=== PATIENT | female | born 1960 | race Hispanic/Latino ===

== ENCOUNTER 2017-11-20 22:21 | Inpatient (IN) | payer OTHER ==
[~2017-11-20] VITALS: Ht 152 cm; Wt 72.6 kg
[2017-11-20] MEDS ORDERED: ASPIRIN 325 MG TABLET ONE (22:30)
[2017-11-20 22:46] LABS: BASOPHILS % (AUTO) 0.7 % (0.0-5.0); EOSINOPHILS % (AUTO) 4.5 % (0.0-8.0); HEMATOCRIT 44.9 % (36-48); LYMPHOCYTES % (AUTO) 38.6 % (21.0-51.0); MEAN CORPUSCULAR HEMOGLOBIN 33.6 pg (27.0-33.0); MEAN CORPUSCULAR HGB CONC 34.4 g/dL (32.0-36.0); MEAN CORPUSCULAR VOLUME 97.5 fL (79-99); MONOCYTES % (AUTO) 7.5 % (3.0-13.0); NEUTROPHILS % (AUTO) 48.7 % (40.0-77.0); PLATELET COUNT (AUTO) 282 K/uL (130-400); RED CELL DISTRIBUTION WIDTH 12.4 % (11.0-15.5); WHITE BLOOD COUNT (AUTO) 9.9 K/uL (4.8-10.8)
[2017-11-20] MEDS ORDERED: DICYCLOMINE HCL 10 MG/ML 2ML AMP IM ONE (22:50)
[2017-11-20] MEDS ORDERED: SODIUM CHLORIDE 0.9% 1000ML 1,000 ML IV ONE (22:50)
[2017-11-20] MEDS ORDERED: ONDANSETRON HCL 4 MG/2 ML VIAL ONE (22:50)
[2017-11-20 22:55] LABS: CREATININE 0.8 mg/dL (0.5-1.5); POTASSIUM 3.8 mmol/L (3.5-5.1)
[2017-11-20 23:08] LABS: ALBUMIN 4.1 g/dL (3.5-5.0); BILIRUBIN,TOTAL 0.6 mg/dL (0.2-1.0); TOTAL PROTEIN, SERUM 6.9 g/dL (6.0-8.3)
[2017-11-21] VITALS (7 sets, daily range): BP systolic 95–114; BP diastolic 54–73
[2017-11-21] MEDS ORDERED: ONDANSETRON HCL 4 MG/2 ML VIAL ONE (00:05)
[2017-11-21] MEDS ORDERED: MORPHINE SULFATE 4 MG/1ML SYG ONE (00:06)
[2017-11-21] MEDS ORDERED: ONDANSETRON HCL MDV 20ML 2 MG/ML VIAL IVP PRN (01:00)
[2017-11-21] MEDS ORDERED: MORPHINE SULFATE 4 MG/1ML SYG IVP PRN (01:00)
[2017-11-21] MEDS: 1/2 NORMAL SALINE 1,000 ML IV SCH ×3 (01:08→20:09)
[2017-11-21 04:34] LABS: HEMATOCRIT 41.8 % (36-48); MEAN CORPUSCULAR HGB CONC 35.6 g/dL (32.0-36.0); MEAN CORPUSCULAR VOLUME 98.3 fL (79-99); NUCLEATED RED BLOOD CELLS 0.1 % (0.0-0.19); PLATELET COUNT (AUTO) 267 K/uL (130-400); RED BLOOD CELL COUNT(AUTO) 4.25 MIL/uL (4.00-5.50); WHITE BLOOD COUNT (AUTO) 8.3 K/uL (4.8-10.8)
[2017-11-21 04:42] LABS: CREATININE 0.9 mg/dL (0.5-1.5); POTASSIUM 4.6 mmol/L (3.5-5.1)
[2017-11-21] MEDS ORDERED: HYDROMORPHONE 1 MG/1 ML AMP IVP PRN (06:30)
[2017-11-21 07:11] LABS: CHOLESTEROL 89 mg/dL (<200); HDL CHOLESTEROL 35 mg/dL (35-85); LDL DIRECT 35 mg/dL (0-99); TRIGLYCERIDES 253 mg/dL (30-200)
[2017-11-21] MEDS ORDERED: GLUCAGON 1MG KIT 1 MG ML IM PRN (08:00)
[2017-11-21] MEDS ORDERED: DEXTROSE 50%-WATER 50 ML DISP.SYRIN IV PRN (08:00)
[2017-11-21] MEDS ORDERED: ENOXAPARIN SODIUM 30 MG/0.3 ML SQ SCH (09:00)
[2017-11-21] MEDS ORDERED: PANTOPRAZOLE 40 MG/VIAL IVP SCH (09:00)
[2017-11-21] MEDS: INSULIN HUMULIN R 100 UNIT/ML 3ML SQ SCH ×3 (12:00→20:58)
[2017-11-21] MEDS ORDERED: ATOR40TA69 PO (20:06)
[2017-11-21] MEDS ORDERED: LISI40TA4 PO (20:06)
[2017-11-21] MEDS ORDERED: METF500T6 PO (20:06)
[2017-11-21] MEDS ORDERED: AMLO5TAB2 PO (20:06)
[2017-11-22 03:05] VITALS: BP 99/58
[2017-11-22 04:33] LABS: HEMATOCRIT 41.5 % (36-48); MEAN CORPUSCULAR HEMOGLOBIN 33.8 pg (27.0-33.0); MEAN CORPUSCULAR HGB CONC 34.6 g/dL (32.0-36.0); MEAN CORPUSCULAR VOLUME 97.6 fL (79-99); PLATELET COUNT (AUTO) 242 K/uL (130-400); RED BLOOD CELL COUNT(AUTO) 4.25 MIL/uL (4.00-5.50); RED CELL DISTRIBUTION WIDTH 12.1 % (11.0-15.5); WHITE BLOOD COUNT (AUTO) 8.1 K/uL (4.8-10.8)
[2017-11-22 04:43] LABS: POTASSIUM 3.9 mmol/L (3.5-5.1)
[2017-11-22] MEDS: 1/2 NORMAL SALINE 1,000 ML IV SCH (05:41)
[2017-11-22] MEDS ORDERED: IPRATROPIUM/ALBUTEROL SULFATE 3 ML SOLUTION IH SCH (06:00)
[2017-11-22] MEDS: INSULIN HUMULIN R 100 UNIT/ML 3ML SQ SCH (06:31)
[2017-11-22 07:00] VITALS: BP 112/76
[2017-11-22] MEDS ORDERED: FAMOTIDINE/PF 20 MG/2 ML VIAL IV SCH (09:00)
== END 2017-11-22 09:30 | disposition home or self-care (01) | DRG 440 ==
LOC: EDH 22:21 → 3DH 11-21 00:07
PROVIDERS: ADMIT Internal Medicine; ATTEND Internal Medicine
DX: K85.90 Acute pancreatitis without necrosis or infection, unspecified (principal); E11.9 Type 2 diabetes mellitus without complications; J44.9 Chronic obstructive pulmonary disease, unspecified; I10 Essential (primary) hypertension; Z90.49 Acquired absence of other specified parts of digestive tract
CPT/HCPCS: 36415; 71045; 74176; 76700; 80048; 80053; 80061; 82150; 82550; 82948; 83690; 84484; 85025; 85027; 93005; 94640; 94664; C9113; J0500; J1650; J2270; J2405; J7030

== ENCOUNTER 2018-08-10 17:09 | Emergency (ER) | payer OTHER ==
[~2018-08-10 17:09] MED LIST: AMLO5TAB9 PO; ATOR40TA69 PO; LISI40TA4 PO; METF-444 PO
[2018-08-10 17:58] LABS: BASOPHILS % (AUTO) 0.8 % (0.0-5.0); EOSINOPHILS % (AUTO) 3.7 % (0.0-8.0); HEMATOCRIT 45.3 % (36-48); LYMPHOCYTES % (AUTO) 36.6 % (21.0-51.0); MEAN CORPUSCULAR HEMOGLOBIN 31.9 pg (27.0-33.0); MEAN CORPUSCULAR HGB CONC 32.7 g/dL (32.0-36.0); MEAN CORPUSCULAR VOLUME 97.4 fL (79-99); MONOCYTES % (AUTO) 8.3 % (3.0-13.0); NEUTROPHILS % (AUTO) 50.6 % (40.0-77.0); PLATELET COUNT (AUTO) 293 K/uL (130-400); RED BLOOD CELL COUNT(AUTO) 4.65 MIL/uL (4.00-5.50); RED CELL DISTRIBUTION WIDTH 12.2 % (11.0-15.5); WHITE BLOOD COUNT (AUTO) 7.7 K/uL (4.8-10.8)
[2018-08-10] MEDS ORDERED: IPRATROPIUM/ALBUTEROL SULFATE 3 ML SOLUTION IH ONE (18:10)
[2018-08-10 18:13] LABS: BILIRUBIN,TOTAL 0.3 mg/dL (0.2-1.0); TOTAL PROTEIN, SERUM 7.3 g/dL (6.0-8.3)
== END 2018-08-10 18:57 | disposition home or self-care (01) ==
LOC: EDH 17:09
DX: J20.9 Acute bronchitis, unspecified (principal); E11.9 Type 2 diabetes mellitus without complications; J44.9 Chronic obstructive pulmonary disease, unspecified; I10 Essential (primary) hypertension
CPT/HCPCS: 36415; 71046; 80053; 85025; 87804; 94640

== ENCOUNTER 2018-10-01 13:38 | Emergency (ER) | payer OTHER ==
[2018-10-01 14:20] LABS: BASOPHILS % (AUTO) 0.9 % (0.0-5.0); EOSINOPHILS % (AUTO) 2.9 % (0.0-8.0); HEMATOCRIT 35.4 % (36-48); LYMPHOCYTES % (AUTO) 22.2 % (21.0-51.0); MEAN CORPUSCULAR HEMOGLOBIN 31.1 pg (27.0-33.0); MEAN CORPUSCULAR HGB CONC 33.1 g/dL (32.0-36.0); MONOCYTES % (AUTO) 5.9 % (3.0-13.0); NEUTROPHILS % (AUTO) 68.1 % (40.0-77.0); PLATELET COUNT (AUTO) 356 K/uL (130-400); RED BLOOD CELL COUNT(AUTO) 3.76 MIL/uL (4.00-5.50); RED CELL DISTRIBUTION WIDTH 12.5 % (11.0-15.5); WHITE BLOOD COUNT (AUTO) 8.3 K/uL (4.8-10.8)
[2018-10-01 14:37] LABS: CREATININE 1.1 mg/dL (0.5-1.5); POTASSIUM 3.7 mmol/L (3.5-5.1)
[2018-10-01 14:39] LABS: ALBUMIN 3.9 g/dL (3.5-5.0); BILIRUBIN,TOTAL 0.6 mg/dL (0.2-1.0); TOTAL PROTEIN, SERUM 6.4 g/dL (6.0-8.3)
[2018-10-01] MEDS ORDERED: KETOROLAC TROMETHAMINE 15MG/ML ONE (15:06)
[2018-10-01] MEDS ORDERED: IOHEXOL-350 75 ML VIAL IV ONE (15:41)
== END 2018-10-01 17:11 | disposition home or self-care (01) ==
LOC: EDH 13:38
DX: S20.212A Contusion of left front wall of thorax, initial encounter (principal); S70.02XA Contusion of left hip, initial encounter; S50.312A Abrasion of left elbow, initial encounter; S80.812A Abrasion, left lower leg, initial encounter; S39.91XA Unspecified injury of abdomen, initial encounter; E11.9 Type 2 diabetes mellitus without complications; J44.9 Chronic obstructive pulmonary disease, unspecified; I10 Essential (primary) hypertension; Z72.0 Tobacco use; W01.0XXA Fall on same level from slipping, tripping and stumbling without subsequent striking against object, initial encounter; Y93.89 Activity, other specified; Y92.89 Other specified places as the place of occurrence of the external cause; Y99.8 Other external cause status
CPT/HCPCS: 36415; 71101; 73502; 74177; 80053; 82550; 84484; 85025; 93005; 96374; 99284; J1885; Q9967

== ENCOUNTER → 2018-12-04 | Outpatient (CLI) | payer OTHER ==
[2018-12-04 08:21] LABS: BASOPHILS % (AUTO) 0.7 % (0.0-5.0); EOSINOPHILS % (AUTO) 4.3 % (0.0-8.0); HEMATOCRIT 42.7 % (36-48); LYMPHOCYTES % (AUTO) 28.2 % (21.0-51.0); MEAN CORPUSCULAR HEMOGLOBIN 30.1 pg (27.0-33.0); MEAN CORPUSCULAR HGB CONC 32.9 g/dL (32.0-36.0); MEAN CORPUSCULAR VOLUME 91.3 fL (79-99); MONOCYTES % (AUTO) 9.2 % (3.0-13.0); NEUTROPHILS % (AUTO) 57.6 % (40.0-77.0); NUCLEATED RED BLOOD CELLS 0.1 % (0.0-0.19); PLATELET COUNT (AUTO) 282 K/uL (130-400); RED BLOOD CELL COUNT(AUTO) 4.68 MIL/uL (4.00-5.50); RED CELL DISTRIBUTION WIDTH 14.5 % (11.0-15.5); WHITE BLOOD COUNT (AUTO) 7.4 K/uL (4.8-10.8)
[2018-12-04 08:36] LABS: HEMOGLOBIN A1C 7.2 % (4.0-6.0)
[2018-12-04 08:49] LABS: ALBUMIN 4.2 g/dL (3.5-5.0); BILIRUBIN,DIRECT 0.1 mg/dL (0.0-0.3); BILIRUBIN,TOTAL 0.5 mg/dL (0.2-1.0); POTASSIUM 4.9 mmol/L (3.5-5.1); THYROID STIMULATING HORMONE 4.31 uIU/mL (0.36-3.74); TOTAL PROTEIN, SERUM 6.7 g/dL (6.0-8.3); URIC ACID 7.9 mg/dL (2.6-7.2)
== END | disposition home or self-care (01) ==
LOC: LAB 07:35
PROVIDERS: ATTEND Internal Medicine
DX: E11.65 Type 2 diabetes mellitus with hyperglycemia (principal); I25.10 Atherosclerotic heart disease of native coronary artery without angina pectoris; J44.9 Chronic obstructive pulmonary disease, unspecified; F17.210 Nicotine dependence, cigarettes, uncomplicated
CPT/HCPCS: 36415; 80053; 80061; 80076; 82043; 83036; 83970; 84443; 84550; 85025

== ENCOUNTER → 2018-12-19 | Outpatient (CLI) | payer OTHER ==
[~2018-12-19] MED LIST changes: +ALBUTEROL SULFATE 0.083% 2.5 MG/3 ML INH IH ONE
== END | disposition home or self-care (01) ==
LOC: RESP 08:39
PROVIDERS: ATTEND Internal Medicine
DX: I51.7 Cardiomegaly (principal); J44.9 Chronic obstructive pulmonary disease, unspecified
CPT/HCPCS: 93306; 94060; 94727; 94729

== ENCOUNTER → 2019-02-06 | Outpatient (CLI) | payer OTHER ==
[~2019-02-06] VITALS: Ht 154.9 cm; Wt 79.4 kg
[~2019-02-06] MED LIST changes: -ALBUTEROL SULFATE 0.083% 2.5 MG/3 ML INH IH ONE; +REGADENOSON 0.4 MG/5 ML PF SYG IVP SCH
== END | disposition home or self-care (01) ==
LOC: RAH 09:11
PROVIDERS: ATTEND Internal Medicine
DX: I21.19 ST elevation (STEMI) myocardial infarction involving other coronary artery of inferior wall (principal); I21.29 ST elevation (STEMI) myocardial infarction involving other sites; I20.8 Other forms of angina pectoris
CPT/HCPCS: 78452; 93017; 96374; A9500 ×2; J2785

== ENCOUNTER → 2019-05-13 | Outpatient (CLI) | payer OTHER ==
[~2019-05-13] MED LIST changes: -REGADENOSON 0.4 MG/5 ML PF SYG IVP SCH
[2019-05-13 08:25] LABS: BASOPHILS % (AUTO) 0.7 % (0.0-5.0); EOSINOPHILS % (AUTO) 2.8 % (0.0-8.0); HEMATOCRIT 48.8 % (36-48); LYMPHOCYTES % (AUTO) 29.9 % (21.0-51.0); MEAN CORPUSCULAR HEMOGLOBIN 33.9 pg (27.0-33.0); MEAN CORPUSCULAR HGB CONC 33.8 g/dL (32.0-36.0); MEAN CORPUSCULAR VOLUME 100.4 fL (79-99); MONOCYTES % (AUTO) 8.4 % (3.0-13.0); NEUTROPHILS % (AUTO) 58.2 % (40.0-77.0); NUCLEATED RED BLOOD CELLS 0.1 % (0.0-0.19); PLATELET COUNT (AUTO) 283 K/uL (130-400); RED BLOOD CELL COUNT(AUTO) 4.86 MIL/uL (4.00-5.50); RED CELL DISTRIBUTION WIDTH 12.8 % (11.0-15.5); WHITE BLOOD COUNT (AUTO) 8.5 K/uL (4.8-10.8)
[2019-05-13 08:59] LABS: HEMOGLOBIN A1C 6.5 % (4.0-6.0)
[2019-05-13 09:02] LABS: ALBUMIN 3.7 g/dL (3.5-5.0); BILIRUBIN,DIRECT 0.1 mg/dL (0.0-0.3); BILIRUBIN,TOTAL 0.6 mg/dL (0.2-1.0); POTASSIUM 3.8 mmol/L (3.5-5.1); THYROID STIMULATING HORMONE 2.99 uIU/mL (0.36-3.74); TOTAL PROTEIN, SERUM 6.6 g/dL (6.0-8.3); URIC ACID 6.9 mg/dL (2.6-7.2)
== END | disposition home or self-care (01) ==
LOC: LAB 07:14
PROVIDERS: ATTEND Internal Medicine
DX: I25.10 Atherosclerotic heart disease of native coronary artery without angina pectoris (principal); J44.9 Chronic obstructive pulmonary disease, unspecified; I51.7 Cardiomegaly; I73.9 Peripheral vascular disease, unspecified; F17.200 Nicotine dependence, unspecified, uncomplicated
CPT/HCPCS: 36415; 80048; 80061; 80076; 82043; 83036; 84443; 84550; 85025

== ENCOUNTER 2019-07-05 23:44 | Emergency (ER) | payer OTHER | END 2019-07-06 01:18 | disposition home or self-care (01) | LOC: EDH 23:44 | DX: S01.01XA Laceration without foreign body of scalp, initial encounter (principal); J44.9 Chronic obstructive pulmonary disease, unspecified; E11.9 Type 2 diabetes mellitus without complications; I10 Essential (primary) hypertension; Z72.0 Tobacco use; W18.31XA Fall on same level due to stepping on an object, initial encounter; Y93.89 Activity, other specified; Y92.098 Other place in other non-institutional residence as the place of occurrence of the external cause; Y99.8 Other external cause status | CPT/HCPCS: 12002; 70450 ==

== ENCOUNTER → 2019-08-16 | Outpatient (CLI) | payer OTHER ==
[2019-08-16 08:26] LABS: BASOPHILS % (AUTO) 0.5 % (0.0-5.0); EOSINOPHILS % (AUTO) 1.9 % (0.0-8.0); HEMATOCRIT 47.5 % (36-48); LYMPHOCYTES % (AUTO) 25.3 % (21.0-51.0); MEAN CORPUSCULAR HEMOGLOBIN 33.3 pg (27.0-33.0); MEAN CORPUSCULAR HGB CONC 33.7 g/dL (32.0-36.0); MEAN CORPUSCULAR VOLUME 98.8 fL (79-99); MONOCYTES % (AUTO) 7.3 % (3.0-13.0); NEUTROPHILS % (AUTO) 64.5 % (40.0-77.0); PLATELET COUNT (AUTO) 318 K/uL (130-400); RED BLOOD CELL COUNT(AUTO) 4.81 MIL/uL (4.00-5.50); RED CELL DISTRIBUTION WIDTH 12.1 % (11.0-15.5); WHITE BLOOD COUNT (AUTO) 9.2 K/uL (4.8-10.8)
[2019-08-16 09:06] LABS: ALBUMIN 3.7 g/dL (3.5-5.0); BILIRUBIN,DIRECT 0.2 mg/dL (0.0-0.3); TOTAL PROTEIN, SERUM 6.7 g/dL (6.0-8.3)
[2019-08-16 09:08] LABS: BILIRUBIN,TOTAL 0.9 mg/dL (0.2-1.0); POTASSIUM 4.4 mmol/L (3.5-5.1); THYROID STIMULATING HORMONE 4.09 uIU/mL (0.36-3.74); URIC ACID 7.1 mg/dL (2.6-7.2)
[2019-08-16 09:16] LABS: HEMOGLOBIN A1C 6.3 % (4.0-6.0)
== END | disposition home or self-care (01) ==
LOC: LAB 07:52
PROVIDERS: ATTEND Internal Medicine
DX: Z12.11 Encounter for screening for malignant neoplasm of colon (principal)
CPT/HCPCS: 36415; 80053; 80061; 80076; 82270; 83036; 83090; 83970; 84443; 84550; 85025

== ENCOUNTER → 2020-01-08 | Outpatient (CLI) | payer OTHER ==
[2020-01-08 08:31] LABS: BASOPHILS % (AUTO) 0.6 % (0.0-5.0); EOSINOPHILS % (AUTO) 4.1 % (0.0-8.0); HEMATOCRIT 47.4 % (36-48); LYMPHOCYTES % (AUTO) 22.1 % (21.0-51.0); MEAN CORPUSCULAR HEMOGLOBIN 33.2 pg (27.0-33.0); MEAN CORPUSCULAR HGB CONC 34.2 g/dL (32.0-36.0); MEAN CORPUSCULAR VOLUME 97.1 fL (79-99); MONOCYTES % (AUTO) 7.7 % (3.0-13.0); PLATELET COUNT (AUTO) 293 K/uL (130-400); RED BLOOD CELL COUNT(AUTO) 4.88 MIL/uL (4.00-5.50); RED CELL DISTRIBUTION WIDTH 11.6 % (11.0-15.5); WHITE BLOOD COUNT (AUTO) 7.8 K/uL (4.8-10.8)
[2020-01-08 08:53] LABS: HEMOGLOBIN A1C 6.6 % (4.0-6.0)
[2020-01-08 08:55] LABS: ALBUMIN 3.7 g/dL (3.5-5.0); BILIRUBIN,DIRECT 0.2 mg/dL (0.0-0.3); BILIRUBIN,TOTAL 0.8 mg/dL (0.2-1.0); CREATININE 1.1 mg/dL (0.5-1.5); POTASSIUM 4.5 mmol/L (3.5-5.1); THYROID STIMULATING HORMONE 3.76 uIU/mL (0.36-3.74); TOTAL PROTEIN, SERUM 6.5 g/dL (6.0-8.3)
== END | disposition home or self-care (01) ==
LOC: LAB 08:02
PROVIDERS: ATTEND Internal Medicine
DX: E11.65 Type 2 diabetes mellitus with hyperglycemia (principal); E53.8 Deficiency of other specified B group vitamins; E78.5 Hyperlipidemia, unspecified; H40.1111 Primary open-angle glaucoma, right eye, mild stage; H81.10 Benign paroxysmal vertigo, unspecified ear; I10 Essential (primary) hypertension
CPT/HCPCS: 36415; 80053; 80061; 80076; 82043; 82570; 83036; 84443; 85025

== ENCOUNTER → 2020-03-12 | Outpatient (CLI) | payer OTHER ==
[2020-03-12 11:32] LABS: BASOPHILS % (AUTO) 0.4 % (0.0-5.0); EOSINOPHILS % (AUTO) 2.5 % (0.0-8.0); HEMATOCRIT 48.6 % (36-48); LYMPHOCYTES % (AUTO) 26.6 % (21.0-51.0); MEAN CORPUSCULAR HEMOGLOBIN 33.7 pg (27.0-33.0); MEAN CORPUSCULAR HGB CONC 34.6 g/dL (32.0-36.0); MEAN CORPUSCULAR VOLUME 97.6 fL (79-99); MONOCYTES % (AUTO) 7.9 % (3.0-13.0); NEUTROPHILS % (AUTO) 62.2 % (40.0-77.0); PLATELET COUNT (AUTO) 321 K/uL (130-400); RED BLOOD CELL COUNT(AUTO) 4.98 MIL/uL (4.00-5.50); RED CELL DISTRIBUTION WIDTH 11.9 % (11.0-15.5); WHITE BLOOD COUNT (AUTO) 9.4 K/uL (4.8-10.8)
[2020-03-12 11:44] LABS: ALANINE AMINOTRANSFERASE 32 U/L (12-78); ASPARTATE AMINOTRANSFERASE 12 U/L (10-37); BILIRUBIN,TOTAL 0.4 mg/dL (0.2-1.0); CARBON DIOXIDE 27 mmol/L (21-32); CHLORIDE 105 mmol/L (101-111); GLOMERULAR FILTR. RATE CALC 60 mL/min (>60); GLUCOSE,RANDOM 124 mg/dL (70-105); POTASSIUM 4.7 mmol/L (3.5-5.1); SODIUM SERUM 141 mmol/L (136-145); TOTAL PROTEIN, SERUM 7.4 g/dL (6.0-8.3); UREA NITROGEN, BLOOD 20 mg/dL (7-18)
[2020-03-12 11:52] LABS: CRP QUANTITATIVE < 2.00 mg/L (0.00-9.0)
[2020-03-12 12:37] LABS: ERYTHROCYTE SEDIMENTATION RATE 0 MM/HR (0-30)
== END | disposition home or self-care (01) ==
LOC: LAB 11:02
PROVIDERS: ATTEND Internal Medicine
DX: Z11.59 Encounter for screening for other viral diseases (principal); R19.7 Diarrhea, unspecified
CPT/HCPCS: 36415; 80053; 82728; 85025; 85651; 86140; C9803; U0003

== ENCOUNTER 2020-05-20 16:49 | Emergency (ER) | payer OTHER ==
[~2020-05-20 16:49] MED LIST changes: +AMLO-257 PO; -AMLO5TAB9 PO
[2020-05-20] MEDS ORDERED: NAPROXEN 500 MG TABLET ONE (17:58)
== END 2020-05-20 18:13 | disposition home or self-care (01) ==
LOC: EDH 16:49
DX: S93.401A Sprain of unspecified ligament of right ankle, initial encounter (principal); I10 Essential (primary) hypertension; J44.9 Chronic obstructive pulmonary disease, unspecified; E11.9 Type 2 diabetes mellitus without complications; Z98.890 Other specified postprocedural states; X58.XXXA Exposure to other specified factors, initial encounter; Y93.89 Activity, other specified; Y92.098 Other place in other non-institutional residence as the place of occurrence of the external cause; Y99.8 Other external cause status
CPT/HCPCS: 73610

== ENCOUNTER → 2020-06-04 | Outpatient (CLI) | payer OTHER ==
[2020-06-04 08:28] LABS: BASOPHILS % (AUTO) 0.8 % (0.0-5.0); EOSINOPHILS % (AUTO) 4.8 % (0.0-8.0); HEMATOCRIT 46.9 % (36-48); LYMPHOCYTES % (AUTO) 29.9 % (21.0-51.0); MEAN CORPUSCULAR HGB CONC 33.9 g/dL (32.0-36.0); MEAN CORPUSCULAR VOLUME 97.3 fL (79-99); MONOCYTES % (AUTO) 7.1 % (3.0-13.0); PLATELET COUNT (AUTO) 292 K/uL (130-400); RED BLOOD CELL COUNT(AUTO) 4.82 MIL/uL (4.00-5.50); RED CELL DISTRIBUTION WIDTH 11.8 % (11.0-15.5); WHITE BLOOD COUNT (AUTO) 7.2 K/uL (4.8-10.8)
[2020-06-04 08:36] LABS: HEMOGLOBIN A1C 7.3 % (4.0-6.0)
[2020-06-04 08:41] LABS: BILIRUBIN,DIRECT 0.2 mg/dL (0.0-0.3); BILIRUBIN,TOTAL 0.8 mg/dL (0.2-1.0); POTASSIUM 4.5 mmol/L (3.5-5.1)
== END | disposition home or self-care (01) ==
LOC: LAB 07:44
PROVIDERS: ATTEND Internal Medicine
DX: R19.7 Diarrhea, unspecified (principal)
CPT/HCPCS: 36415; 80053; 80061; 80076; 82043; 83036; 85025

== ENCOUNTER → 2020-09-01 | Outpatient (CLI) | payer OTHER ==
[~2020-09-01] MED LIST changes: -LISI40TA4 PO; +LISI40TA9 PO
[2020-09-01 10:56] LABS: BASOPHILS % (AUTO) 0.3 % (0.0-5.0); EOSINOPHILS % (AUTO) 1.2 % (0.0-8.0); HEMATOCRIT 51.3 % (36-48); LYMPHOCYTES % (AUTO) 9.9 % (21.0-51.0); MEAN CORPUSCULAR HEMOGLOBIN 32.3 pg (27.0-33.0); MEAN CORPUSCULAR HGB CONC 33.3 g/dL (32.0-36.0); MEAN CORPUSCULAR VOLUME 96.8 fL (79-99); MONOCYTES % (AUTO) 5.6 % (3.0-13.0); NEUTROPHILS % (AUTO) 82.5 % (40.0-77.0); PLATELET COUNT (AUTO) 268 K/uL (130-400); RED CELL DISTRIBUTION WIDTH 11.8 % (11.0-15.5); WHITE BLOOD COUNT (AUTO) 7.5 K/uL (4.8-10.8)
[2020-09-01 11:45] LABS: ALBUMIN 3.7 g/dL (3.5-5.0); BILIRUBIN,TOTAL 1.8 mg/dL (0.2-1.0); THYROID STIMULATING HORMONE 3.29 uIU/mL (0.36-3.74); TOTAL PROTEIN, SERUM 6.8 g/dL (6.0-8.3)
[2020-09-01 12:06] LABS: ERYTHROCYTE SEDIMENTATION RATE 1 MM/HR (0-30)
== END | disposition home or self-care (01) ==
LOC: LAB 10:11
PROVIDERS: ATTEND Internal Medicine
DX: J44.9 Chronic obstructive pulmonary disease, unspecified (principal); E11.65 Type 2 diabetes mellitus with hyperglycemia; K29.70 Gastritis, unspecified, without bleeding
CPT/HCPCS: 36415; 80053; 80061; 82306; 82607; 83036; 83690; 84443; 85025; 85651; 86677

== ENCOUNTER → 2021-01-01 | Outpatient (CLI) | payer OTHER ==
[2021-01-01 16:04] LABS: BASOPHILS % (AUTO) 0.7 % (0.0-5.0); EOSINOPHILS % (AUTO) 2.1 % (0.0-8.0); HEMATOCRIT 48.7 % (36-48); LYMPHOCYTES % (AUTO) 29.4 % (21.0-51.0); MEAN CORPUSCULAR HEMOGLOBIN 31.2 pg (27.0-33.0); MEAN CORPUSCULAR HGB CONC 31.8 g/dL (32.0-36.0); MONOCYTES % (AUTO) 9.5 % (3.0-13.0); NEUTROPHILS % (AUTO) 58.2 % (40.0-77.0); PLATELET COUNT (AUTO) 285 K/uL (130-400); RED BLOOD CELL COUNT(AUTO) 4.97 MIL/uL (4.00-5.50); RED CELL DISTRIBUTION WIDTH 13.3 % (11.0-15.5)
[2021-01-01 16:27] LABS: ALBUMIN 3.2 g/dL (3.5-5.0); BILIRUBIN,TOTAL 0.9 mg/dL (0.2-1.0); CREATININE 1.1 mg/dL (0.5-1.5); POTASSIUM 4.4 mmol/L (3.5-5.1); TOTAL PROTEIN, SERUM 6.3 g/dL (6.0-8.3)
[2021-01-01 17:06] LABS: ERYTHROCYTE SEDIMENTATION RATE 3 MM/HR (0-30)
== END | disposition home or self-care (01) ==
LOC: RAH 15:24
PROVIDERS: ATTEND Internal Medicine
DX: I51.7 Cardiomegaly (principal); I50.9 Heart failure, unspecified; I87.2 Venous insufficiency (chronic) (peripheral); J44.9 Chronic obstructive pulmonary disease, unspecified
CPT/HCPCS: 36415; 71046; 80053; 85025; 85651

== ENCOUNTER 2021-02-12 11:34 | Inpatient (IN) | payer OTHER ==
[~2021-02-12] VITALS: Ht 152.4 cm; Wt 77.6 kg
[2021-02-12] MEDS ORDERED: ALBUTEROL INHALER 90MCG/INH IH PRN (12:00)
[2021-02-12 12:03] VITALS: BP 124/91
[2021-02-12 12:06] LABS: BASOPHILS % (AUTO) 0.6 % (0.0-5.0); EOSINOPHILS % (AUTO) 1.7 % (0.0-8.0); HEMATOCRIT 49.1 % (36-48); LYMPHOCYTES % (AUTO) 25.5 % (21.0-51.0); MEAN CORPUSCULAR HEMOGLOBIN 30.5 pg (27.0-33.0); MEAN CORPUSCULAR HGB CONC 31.6 g/dL (32.0-36.0); MEAN CORPUSCULAR VOLUME 96.7 fL (79-99); MONOCYTES % (AUTO) 8.6 % (3.0-13.0); NEUTROPHILS % (AUTO) 63.3 % (40.0-77.0); PLATELET COUNT (AUTO) 276 K/uL (130-400); RED BLOOD CELL COUNT(AUTO) 5.08 MIL/uL (4.00-5.50); WHITE BLOOD COUNT (AUTO) 6.5 K/uL (4.8-10.8)
[2021-02-12 12:08] LABS: ABG BASE EXCESS -0.7 mmol/L (-2.0-3.0); ABG HCO3 25.4 mmol/L (21.0-28.0); ABG OXYGEN SATURATION 83.6 % (95.0-99.0); ABG PCO2 47 mmHg (32-45)
[2021-02-12 12:18] LABS: INR 1.1 (0.85-1.15); PROTHROMBIN TIME 11.9 SEC (9.6-11.6)
[2021-02-12 12:19] LABS: PARTIAL THROMBOPLASTIN TIME 23.6 SEC (26.3-35.5)
[2021-02-12 12:26] LABS: CREATININE 1.1 mg/dL (0.5-1.5); POTASSIUM 4.7 mmol/L (3.5-5.1)
[2021-02-12] MEDS ORDERED: AZITHROMYCIN 250 MG TABLET PO ONE (12:30)
[2021-02-12] MEDS ORDERED: SOLU-MEDROL 125MG VIAL IVP ONE (12:30)
[2021-02-12] MEDS ORDERED: CEFTRIAXONE 1G VIAL IVP ONE (12:30)
[2021-02-12 12:35] LABS: ALBUMIN 3.3 g/dL (3.5-5.0); BILIRUBIN,TOTAL 1.2 mg/dL (0.2-1.0); TOTAL PROTEIN, SERUM 6.3 g/dL (6.0-8.3); TROPONIN I 0.15 ng/mL (0.00-0.06)
[2021-02-12] MEDS ORDERED: FUROSEMIDE 40MG VIAL IV SCH (13:00)
[2021-02-12] MEDS ORDERED: METF-446 PO (16:59)
[2021-02-12] MEDS ORDERED: ESCI10TA PO (16:59)
[2021-02-12] MEDS ORDERED: FURO20TA6 PO (16:59)
[2021-02-12] MEDS ORDERED: PANT40TA54 PO (16:59)
[2021-02-12] MEDS ORDERED: INSULIN HUMULIN R 100 UNIT/ML 3ML SQ ONE (17:30)
[2021-02-12 17:53] VITALS: BP 144/78
[2021-02-12 18:30] LABS: TROPONIN I 0.14 ng/mL (0.00-0.06)
[2021-02-12] MEDS ORDERED: FLUT1BLS3 IH (18:39)
[2021-02-12 20:16] VITALS: BP 152/89
[2021-02-12] MEDS ORDERED: 0.9%NACL 10ML VIAL IVP PRN (20:30)
[2021-02-12] MEDS: INSULIN R PO SS1 SQ SCH (20:57)
[2021-02-12 23:56] VITALS: BP 135/87
[2021-02-13 00:50] LABS: TROPONIN I 0.13 ng/mL (0.00-0.06)
[2021-02-13] MEDS: FUROSEMIDE 40MG VIAL IVP SCH ×3 (00:59→21:52)
[2021-02-13 04:02] VITALS: BP 120/71
[2021-02-13 04:26] LABS: HEMATOCRIT 46.5 % (36-48); MEAN CORPUSCULAR HEMOGLOBIN 30.6 pg (27.0-33.0); MEAN CORPUSCULAR HGB CONC 32.5 g/dL (32.0-36.0); MEAN CORPUSCULAR VOLUME 94.1 fL (79-99); RED BLOOD CELL COUNT(AUTO) 4.94 MIL/uL (4.00-5.50); RED CELL DISTRIBUTION WIDTH 13.7 % (11.0-15.5); WHITE BLOOD COUNT (AUTO) 7.5 K/uL (4.8-10.8)
[2021-02-13 04:39] LABS: ALBUMIN 3.1 g/dL (3.5-5.0); BILIRUBIN,TOTAL 1.3 mg/dL (0.2-1.0); CREATININE 1.2 mg/dL (0.5-1.5); POTASSIUM 4.5 mmol/L (3.5-5.1); TOTAL PROTEIN, SERUM 6.3 g/dL (6.0-8.3)
[2021-02-13] MEDS ORDERED: 0.9% NACL 250ML IVPB SCH (07:00)
[2021-02-13] MEDS: INSULIN R PO SS1 SQ SCH ×4 (07:30→21:55)
[2021-02-13 07:36] VITALS: BP 122/76
[2021-02-13] MEDS ORDERED: AZITHROMYCIN 500MG VIAL IVPB SCH (08:00)
[2021-02-13] MEDS: ALBUTEROL INHALER 90MCG/INH IH SCH ×3 (08:00→17:23)
[2021-02-13] MEDS: PANTOPRAZOLE 40 MG TAB DR PO SCH (08:52)
[2021-02-13] MEDS: CITALOPRAM 20 MG TABLET PO SCH (08:52)
[2021-02-13] MEDS: LISINOPRIL 40 MG TABLET PO SCH (08:52)
[2021-02-13] MEDS: METFORMIN HCL 500 MG TABLET PO SCH ×2 (08:52→17:19)
[2021-02-13] MEDS: NICOTINE 14 MG/ 24 HR PATCH TD SCH (08:53)
[2021-02-13] MEDS: **HM** TRELEGY ELLIPTA IH SCH (08:54)
[2021-02-13] MEDS: SOLU-MEDROL 125MG VIAL IVP SCH ×2 (08:54→21:52)
[2021-02-13] MEDS ORDERED: 0.9% NACL 250ML 250 ML ONE (08:59)
[2021-02-13] MEDS ORDERED: AZITHROMYCIN 500MG+NS 250ML 250 ML IV SCH (09:00)
[2021-02-13] MEDS: HEPARIN 5,000 UNIT VIAL SQ SCH ×2 (09:09→21:53)
[2021-02-13] MEDS ORDERED: CEFTRIAXONE 1G VIAL IVP SCH (10:00)
[2021-02-13] MEDS: LEVOFLOXACIN 500 MG/D5W 100 ML 100 ML IV SCH (10:30)
[2021-02-13 12:29] VITALS: BP 122/77
[2021-02-13 16:46] VITALS: BP 118/74
[2021-02-13 20:00] VITALS: BP 132/72
[2021-02-13] MEDS: INSULIN GLARGINE 100 UNITS/ML 10 ML VIAL SQ SCH (21:56)
[2021-02-14] VITALS (7 sets, daily range): BP systolic 95–127; BP diastolic 61–79
[2021-02-14 04:30] LABS: ALBUMIN 3.1 g/dL (3.5-5.0); BILIRUBIN,TOTAL 0.8 mg/dL (0.2-1.0); CREATININE 1.3 mg/dL (0.5-1.5); POTASSIUM 4.1 mmol/L (3.5-5.1); THYROID STIMULATING HORMONE 0.57 uIU/mL (0.36-3.74); TOTAL PROTEIN, SERUM 6.3 g/dL (6.0-8.3)
[2021-02-14] MEDS: ALBUTEROL INHALER 90MCG/INH IH SCH ×4 (06:00→16:57)
[2021-02-14] MEDS: INSULIN R PO SS1 SQ SCH ×4 (06:21→22:25)
[2021-02-14 08:02] LABS: APPEARANCE,URINE Clear (CLEAR); BILIRUBIN,URINE Negative (NEGATIVE); COLOR,URINE Yellow (YELLOW); GLUCOSE, URINE (UA) Negative (NEGATIVE); KETONES,URINE Negative (NEGATIVE); LEUKOCYTE ESTERASE ,URINE Negative (NEGATIVE); NITRATE,URINE Negative (NEGATIVE); OCCULT BLOOD,URINE Trace (NEGATIVE); PH,URINE 5.5 (5.0-8.0); PROTEIN,URINE 300 mg/dL (NEGATIVE)
[2021-02-14 08:23] LABS: BACTERIA,URINE Rare /HPF (None Seen); RBC,URINE 0-1 /HPF (0-1); SQUAMOUS EPITHELIAL CELL,UR 0-2 /HPF (0-2); WBC,URINE None Seen /HPF (0-1)
[2021-02-14] MEDS: METOPROLOL SUCCINATE 50 MG TAB.SR.24H PO SCH (08:45)
[2021-02-14] MEDS: PANTOPRAZOLE 40 MG TAB DR PO SCH (08:45)
[2021-02-14] MEDS: METFORMIN HCL 500 MG TABLET PO SCH ×2 (08:46→16:57)
[2021-02-14] MEDS: CITALOPRAM 20 MG TABLET PO SCH (08:46)
[2021-02-14] MEDS: FUROSEMIDE 40MG VIAL IVP SCH ×2 (08:46→22:10)
[2021-02-14] MEDS: NICOTINE 14 MG/ 24 HR PATCH TD SCH (08:46)
[2021-02-14] MEDS: LISINOPRIL 40 MG TABLET PO SCH (08:46)
[2021-02-14] MEDS: SOLU-MEDROL 125MG VIAL IVP SCH ×2 (08:46→22:10)
[2021-02-14] MEDS: **HM** TRELEGY ELLIPTA IH SCH (08:47)
[2021-02-14] MEDS ORDERED: FUROSEMIDE 40MG VIAL IVP SCH (09:00)
[2021-02-14] MEDS ORDERED: GUAIFENESIN-DM 200/20 MG 10 ML PO PRN (09:00)
[2021-02-14] MEDS: HEPARIN 5,000 UNIT VIAL SQ SCH ×2 (09:04→22:22)
[2021-02-14] MEDS: BENZONATATE 100 MG CAPSULE PO SCH ×2 (09:12→16:57)
[2021-02-14] MEDS: LEVOFLOXACIN 500 MG/D5W 100 ML 100 ML IV SCH (09:12)
[2021-02-14] MEDS: INSULIN GLARGINE 100 UNITS/ML 10 ML VIAL SQ SCH (22:24)
[2021-02-15] VITALS (13 sets, daily range): BP systolic 83–108; BP diastolic 57–76
[2021-02-15] MEDS: BENZONATATE 100 MG CAPSULE PO SCH ×3 (01:05→20:12)
[2021-02-15 04:06] LABS: HEMATOCRIT 51.7 % (36-48); MEAN CORPUSCULAR HEMOGLOBIN 30.3 pg (27.0-33.0); MEAN CORPUSCULAR HGB CONC 31.3 g/dL (32.0-36.0); MEAN CORPUSCULAR VOLUME 96.6 fL (79-99); RED BLOOD CELL COUNT(AUTO) 5.35 MIL/uL (4.00-5.50); RED CELL DISTRIBUTION WIDTH 14.3 % (11.0-15.5); WHITE BLOOD COUNT (AUTO) 12.5 K/uL (4.8-10.8)
[2021-02-15 04:19] LABS: CREATININE 1.3 mg/dL (0.5-1.5); MAGNESIUM 1.2 mg/dL (1.80-2.40)
[2021-02-15] MEDS: INSULIN R PO SS1 SQ SCH ×4 (06:44→21:00)
[2021-02-15] MEDS: HEPARIN 5,000 UNIT VIAL SQ SCH (09:00)
[2021-02-15] MEDS: **HM** TRELEGY ELLIPTA IH SCH (09:00)
[2021-02-15] MEDS: MAGNESIUM 2GM PREMIX 50ML 50 ML IV SCH (09:31)
[2021-02-15] MEDS: METFORMIN HCL 500 MG TABLET PO SCH ×2 (09:33→20:12)
[2021-02-15] MEDS: LISINOPRIL 40 MG TABLET PO SCH (09:33)
[2021-02-15] MEDS: METOPROLOL SUCCINATE 50 MG TAB.SR.24H PO SCH (09:33)
[2021-02-15] MEDS: FUROSEMIDE 20 MG TABLET PO SCH ×2 (09:34→14:00)
[2021-02-15] MEDS: SOLU-MEDROL 125MG VIAL IVP SCH ×2 (09:34→21:18)
[2021-02-15] MEDS: PANTOPRAZOLE 40 MG TAB DR PO SCH (09:34)
[2021-02-15] MEDS: CITALOPRAM 20 MG TABLET PO SCH (09:35)
[2021-02-15 09:44] LABS: ABG BASE EXCESS 9.7 mmol/L (-2.0-3.0); ABG HCO3 37.4 mmol/L (21.0-28.0); ABG OXYGEN SATURATION 97.1 % (95.0-99.0); ABG PCO2 64 mmHg (32-45)
[2021-02-15] MEDS: NICOTINE 14 MG/ 24 HR PATCH TD SCH (09:59)
[2021-02-15] MEDS: LEVOFLOXACIN 500 MG/D5W 100 ML 100 ML IV SCH (10:51)
[2021-02-15] MEDS ORDERED: IOHEXOL 350 MG/ML 100ML INFUS..BTL IV ONE (12:52)
[2021-02-15] MEDS ORDERED: DiphenhydrAMINE HCL 50 MG/ML VIAL ONE (12:52)
[2021-02-15] MEDS ORDERED: IOHEXOL-350 50ML VIAL IV ONE (12:52)
[2021-02-15] MEDS ORDERED: MIDAZOLAM HCL 1 MG/ML 2ML VIAL ONE (12:52)
[2021-02-15] MEDS ORDERED: HEPARIN 10,000 UNIT/10ML (1,000 UNIT/ML) VIAL ONE (12:52)
[2021-02-15] MEDS ORDERED: HEPARIN 1,000 UNIT VIAL ONE (12:52)
[2021-02-15] MEDS ORDERED: LIDOCAINE HCL 400MG/20ML VIAL ONE (12:53)
[2021-02-15] MEDS ORDERED: FENTANYL CITRATE PF 50 MCG/1 ML 2ML VIAL ONE (12:53)
[2021-02-15] MEDS ORDERED: NITROGLYCERIN 2 MG VIAL IV ONE (13:00)
[2021-02-15] MEDS ORDERED: FUROSEMIDE 40MG VIAL ONE (13:42)
[2021-02-15] MEDS: BUDESONIDE 0.5 MG/2 ML INH IH SCH (18:07)
[2021-02-15] MEDS: MONTELUKAST SODIUM 10 MG TAB PO SCH (21:18)
[2021-02-15] MEDS: INSULIN GLARGINE 100 UNITS/ML 10 ML VIAL SQ SCH (21:25)
[2021-02-15] MEDS: AMIODARONE 200 MG TABLET PO SCH (21:28)
[2021-02-16] VITALS: BP 90/59
[2021-02-16] MEDS: ALBUTEROL INHALER 90MCG/INH IH SCH ×3 (00:59→06:00)
[2021-02-16] MEDS: BENZONATATE 100 MG CAPSULE PO SCH ×3 (00:59→17:04)
[2021-02-16 04:00] VITALS: BP 93/55
[2021-02-16 05:24] LABS: HEMATOCRIT 50.2 % (36-48); MEAN CORPUSCULAR HEMOGLOBIN 30.5 pg (27.0-33.0); MEAN CORPUSCULAR HGB CONC 31.3 g/dL (32.0-36.0); MEAN CORPUSCULAR VOLUME 97.5 fL (79-99); RED BLOOD CELL COUNT(AUTO) 5.15 MIL/uL (4.00-5.50); RED CELL DISTRIBUTION WIDTH 14.4 % (11.0-15.5); WHITE BLOOD COUNT (AUTO) 10.1 K/uL (4.8-10.8)
[2021-02-16 05:39] LABS: CREATININE 1.6 mg/dL (0.5-1.5); POTASSIUM 4.2 mmol/L (3.5-5.1)
[2021-02-16] MEDS: BUDESONIDE 0.5 MG/2 ML INH IH SCH ×2 (06:10→19:04)
[2021-02-16] MEDS: INSULIN R PO SS1 SQ SCH ×4 (06:21→21:02)
[2021-02-16 07:59] VITALS: BP 98/57
[2021-02-16] MEDS ORDERED: LEVOFLOXACIN 500 MG TABLET PO SCH (09:00)
[2021-02-16] MEDS ORDERED: FUROSEMIDE 40 MG TABLET PO SCH (09:00)
[2021-02-16] MEDS: METOPROLOL SUCCINATE 50 MG TAB.SR.24H PO SCH (10:30)
[2021-02-16] MEDS: LISINOPRIL 40 MG TABLET PO SCH (10:30)
[2021-02-16] MEDS: AMIODARONE 200 MG TABLET PO SCH ×2 (10:36→21:00)
[2021-02-16] MEDS: CITALOPRAM 20 MG TABLET PO SCH (10:37)
[2021-02-16] MEDS: MAGNESIUM 2GM PREMIX 50ML 50 ML IV SCH (10:37)
[2021-02-16] MEDS: SOLU-MEDROL 125MG VIAL IVP SCH ×2 (10:38→20:59)
[2021-02-16] MEDS: SPIRONOLACTONE 25 MG TAB PO SCH (10:39)
[2021-02-16] MEDS: PANTOPRAZOLE 40 MG TAB DR PO SCH (10:41)
[2021-02-16] MEDS: NICOTINE 14 MG/ 24 HR PATCH TD SCH (10:41)
[2021-02-16 10:56] VITALS: BP 102/71
[2021-02-16] MEDS: METFORMIN HCL 500 MG TABLET PO SCH ×2 (10:59→17:04)
[2021-02-16] MEDS ORDERED: RENAL DOSE IV PRN (11:00)
[2021-02-16] MEDS ORDERED: 0.9%NACL 1000ML 1,000 ML IV SCH (11:00)
[2021-02-16 17:05] VITALS: BP 114/80
[2021-02-16 19:00] VITALS: BP 113/78
[2021-02-16] MEDS: MONTELUKAST SODIUM 10 MG TAB PO SCH (21:00)
[2021-02-16] MEDS: INSULIN GLARGINE 100 UNITS/ML 10 ML VIAL SQ SCH (21:04)
[2021-02-17] VITALS: BP 122/79
[2021-02-17] MEDS: BENZONATATE 100 MG CAPSULE PO SCH ×3 (01:11→17:06)
[2021-02-17] MEDS: IPRATROPIUM 0.5 MG/2.5 ML INH IH SCH ×5 (02:29→18:00)
[2021-02-17 04:00] VITALS: BP 108/69
[2021-02-17 05:12] LABS: CREATININE 1.1 mg/dL (0.5-1.5); POTASSIUM 5.3 mmol/L (3.5-5.1)
[2021-02-17] MEDS: ALBUTEROL INHALER 90MCG/INH IH SCH ×3 (06:00→12:00)
[2021-02-17] MEDS: INSULIN R PO SS1 SQ SCH ×3 (06:19→16:30)
[2021-02-17] MEDS: BUDESONIDE 0.5 MG/2 ML INH IH SCH ×2 (07:11→18:00)
[2021-02-17 08:16] VITALS: BP 127/79
[2021-02-17] MEDS: METOPROLOL SUCCINATE 50 MG TAB.SR.24H PO SCH (08:59)
[2021-02-17] MEDS: METFORMIN HCL 500 MG TABLET PO SCH ×2 (08:59→17:06)
[2021-02-17] MEDS: NICOTINE 14 MG/ 24 HR PATCH TD SCH (08:59)
[2021-02-17] MEDS: LISINOPRIL 40 MG TABLET PO SCH (09:00)
[2021-02-17] MEDS ORDERED: FUROSEMIDE 40 MG TABLET PO SCH (09:00)
[2021-02-17] MEDS: CITALOPRAM 20 MG TABLET PO SCH (09:00)
[2021-02-17] MEDS ORDERED: LEVOFLOXACIN 500 MG TABLET PO SCH (09:00)
[2021-02-17] MEDS: AMIODARONE 200 MG TABLET PO SCH (09:00)
[2021-02-17] MEDS ORDERED: PREDNISONE 20 MG TABLET PO SCH (09:00)
[2021-02-17] MEDS: SPIRONOLACTONE 25 MG TAB PO SCH (09:00)
[2021-02-17] MEDS: PANTOPRAZOLE 40 MG TAB DR PO SCH (09:00)
[2021-02-17 11:05] VITALS: BP 99/61
[2021-02-17 16:40] VITALS: BP 97/48
[2021-02-22] MEDS ORDERED: AMIODARONE 200 MG TABLET PO SCH (09:00)
== END 2021-02-17 18:55 | disposition home or self-care (01) | DRG 286 ==
LOC: EDH 11:34 → EDHIP 12:58 → OBSVTOIN 12:58 → 3DH 19:35
PROVIDERS: ADMIT Internal Medicine; ATTEND Internal Medicine
PROC: 4A023N7 Measurement of Cardiac Sampling and Pressure, Left Heart, Percutaneous Approach (ICD-10-PCS; principal; 2021-02-15)
PROC: B2111ZZ Fluoroscopy of Multiple Coronary Arteries using Low Osmolar Contrast (ICD-10-PCS; 2021-02-15)
DX: I11.0 Hypertensive heart disease with heart failure (principal); J96.02 Acute respiratory failure with hypercapnia; J96.01 Acute respiratory failure with hypoxia; J44.1 Chronic obstructive pulmonary disease with (acute) exacerbation; I47.2 Ventricular tachycardia; I50.23 Acute on chronic systolic (congestive) heart failure; I42.0 Dilated cardiomyopathy; E78.5 Hyperlipidemia, unspecified; E11.9 Type 2 diabetes mellitus without complications; Z68.35 Body mass index [BMI] 35.0-35.9, adult; N28.9 Disorder of kidney and ureter, unspecified; E78.00 Pure hypercholesterolemia, unspecified; G89.29 Other chronic pain; I25.5 Ischemic cardiomyopathy; I49.3 Ventricular premature depolarization; I25.2 Old myocardial infarction; Z79.899 Other long term (current) drug therapy; Z87.891 Personal history of nicotine dependence
CPT/HCPCS: 36415; 36600; 71045; 74176; 78582; 80048; 80053; 80061; 81001; 82550; 82803; 82948; 83735; 83874; 83880; 84443; 84484; 85025; 85027; 85378; 85610; 85730; 86140; 87040; 87071; 87205; 87635; 87804; 87880; 93005; 93306; 93356; 93458; 93970; 94640; 94664; 94760; 99156; 99157; A9540; A9558; C1894; C9803; G0378; J0456; J0696; J1200; J1644; J1815; J1940; J1956; J2250; J2930; J3010; J3475; J3490; J7030; J7050; Q9967

== ENCOUNTER → 2021-03-03 | Outpatient (CLI) | payer OTHER ==
[~2021-03-03] MED LIST changes: -AMLO-257 PO; -ATOR40TA69 PO; +ESCI10TA PO; +FLUT1BLS3 IH; +FURO20TA6 PO; -METF-444 PO; +METF-446 PO; +PANT40TA54 PO
[2021-03-03 16:30] LABS: BASOPHILS % (AUTO) 0.5 % (0.0-5.0); EOSINOPHILS % (AUTO) 1.2 % (0.0-8.0); HEMATOCRIT 56.6 % (36-48); LYMPHOCYTES % (AUTO) 21.4 % (21.0-51.0); MEAN CORPUSCULAR HEMOGLOBIN 30.1 pg (27.0-33.0); MONOCYTES % (AUTO) 7.6 % (3.0-13.0); NEUTROPHILS % (AUTO) 68.7 % (40.0-77.0); NUCLEATED RED BLOOD CELLS 0.2 % (0.0-0.19); PLATELET COUNT (AUTO) 302 K/uL (130-400); RED BLOOD CELL COUNT(AUTO) 6.02 MIL/uL (4.00-5.50); WHITE BLOOD COUNT (AUTO) 11.2 K/uL (4.8-10.8)
[2021-03-03 16:54] LABS: ALBUMIN 3.5 g/dL (3.5-5.0); BILIRUBIN,TOTAL 0.8 mg/dL (0.2-1.0); CREATININE 1.1 mg/dL (0.5-1.5); POTASSIUM 5.1 mmol/L (3.5-5.1); THYROID STIMULATING HORMONE 7.49 uIU/mL (0.36-3.74); TOTAL PROTEIN, SERUM 6.7 g/dL (6.0-8.3)
[2021-03-03 16:56] LABS: B-TYPE NATRIURETIC PEPTIDE 304 pg/mL (0-100)
== END | disposition home or self-care (01) ==
LOC: LAB 15:28
PROVIDERS: ATTEND Internal Medicine
DX: I42.8 Other cardiomyopathies (principal); I48.92 Unspecified atrial flutter; R11.2 Nausea with vomiting, unspecified
CPT/HCPCS: 36415; 80053; 82150; 83690; 83880; 84443; 84484; 85025

== ENCOUNTER 2022-06-16 19:57 | Emergency (ER) | payer OTHER ==
[~2022-06-16] VITALS: Ht 152.4 cm; Wt 72.6 kg
[~2022-06-16 19:57] MED LIST changes: +METO-408 PO; -PANT40TA54 PO; +SPIR50TA5 PO
[2022-06-16] MEDS ORDERED: ORPHENADRINE CITRATE 30 MG/ML ML IVP ONE (20:30)
[2022-06-16] MEDS ORDERED: KETOROLAC 30MG VIAL (30MG/ML) IVP ONE (20:30)
[2022-06-16 22:57] VITALS: BP 109/74
[2022-06-16] MEDS ORDERED: CYCL10TA16 PO (23:07)
[2022-06-16] MEDS ORDERED: NAPR-1180 PO (23:07)
== END 2022-06-16 23:29 | disposition home or self-care (01) ==
LOC: EDH 19:57
DX: S13.4XXA Sprain of ligaments of cervical spine, initial encounter (principal); M47.812 Spondylosis without myelopathy or radiculopathy, cervical region; J44.9 Chronic obstructive pulmonary disease, unspecified; I50.9 Heart failure, unspecified; E66.9 Obesity, unspecified; Z68.31 Body mass index [BMI] 31.0-31.9, adult; Z79.899 Other long term (current) drug therapy; Z79.84 Long term (current) use of oral hypoglycemic drugs; X58.XXXA Exposure to other specified factors, initial encounter; Y93.89 Activity, other specified; Y92.89 Other specified places as the place of occurrence of the external cause; Y99.8 Other external cause status
CPT/HCPCS: 99284; 96374; 72125; 96375; J1885; J2360

== ENCOUNTER 2022-09-21 10:21 | Inpatient (IN) | payer OTHER ==
[~2022-09-21] VITALS: Ht 152.4 cm; Wt 74.4 kg
[~2022-09-21 10:21] MED LIST changes: +CYCL10TA16 PO; +NAPR-1180 PO
[2022-09-21 11:19] LABS: HEMATOCRIT 53.2 % (36-48); MEAN CORPUSCULAR HEMOGLOBIN 31.7 pg (27.0-33.0); MEAN CORPUSCULAR HGB CONC 33.1 g/dL (32.0-36.0); MEAN CORPUSCULAR VOLUME 95.7 fL (79-99); RED BLOOD CELL COUNT(AUTO) 5.56 MIL/uL (4.00-5.50); RED CELL DISTRIBUTION WIDTH 13.4 % (11.0-15.5); WHITE BLOOD COUNT (AUTO) 9.2 K/uL (4.8-10.8)
[2022-09-21 11:30] LABS: CREATININE 1.3 mg/dL (0.5-1.5); POTASSIUM 4.4 mmol/L (3.5-5.1)
[2022-09-21 11:37] LABS: ALBUMIN 3.6 g/dL (3.5-5.0); TOTAL PROTEIN, SERUM 6.5 g/dL (6.0-8.3)
[2022-09-21] MEDS ORDERED: AZITHROMYCIN 250 MG TABLET PO ONE (12:00)
[2022-09-21] MEDS ORDERED: IPRATROPIUM/ALBUTEROL SULFATE 3 ML SOLUTION IH ONE (12:00)
[2022-09-21] MEDS ORDERED: SOLU-MEDROL 125MG VIAL IVP ONE (12:00)
[2022-09-21] MEDS ORDERED: CEFTRIAXONE 1G VIAL IVP ONE (12:00)
[2022-09-21] MEDS ORDERED: ALBUTEROL 0.042% 1.25MG/3ML IH ONE ×3 (12:23→18:41)
[2022-09-21] MEDS ORDERED: IPRATROPIUM 0.5 MG/2.5 ML INH IH ONE ×3 (12:23→23:40)
[2022-09-21] MEDS ORDERED: IPRATROPIUM/ALBUTEROL SULFATE 3 ML SOLUTION IH SCH (17:00)
[2022-09-21] MEDS: SOLU-MEDROL 40MG VIAL IVP SCH (17:00)
[2022-09-21] MEDS ORDERED: DEXTROSE 50%-WATER 50 ML DISP.SYRIN IV PRN (17:00)
[2022-09-21] MEDS ORDERED: GLUCAGON 1MG KIT 1 MG ML IM PRN (17:00)
[2022-09-21] MEDS: AZITHROMYCIN 500MG+NS 250ML IVPB SCH (17:00)
[2022-09-21] MEDS: CEFTRIAXONE 1G VIAL IVP SCH (17:00)
[2022-09-21 18:48] VITALS: BP 118/70
[2022-09-21 20:00] VITALS: BP 122/77
[2022-09-22] VITALS: BP 118/78
[2022-09-22] MEDS: SOLU-MEDROL 40MG VIAL IVP SCH ×3 (00:26→17:39)
[2022-09-22 04:00] VITALS: BP 125/71
[2022-09-22 05:00] LABS: BASOPHILS % (AUTO) 0.1 % (0.0-5.0); HEMATOCRIT 50.1 % (36-48); LYMPHOCYTES % (AUTO) 7.7 % (21.0-51.0); MEAN CORPUSCULAR HEMOGLOBIN 31.8 pg (27.0-33.0); MEAN CORPUSCULAR HGB CONC 32.3 g/dL (32.0-36.0); MEAN CORPUSCULAR VOLUME 98.2 fL (79-99); MONOCYTES % (AUTO) 0.7 % (3.0-13.0); NEUTROPHILS % (AUTO) 90.7 % (40.0-77.0); PLATELET COUNT (AUTO) 204 K/uL (130-400); RED CELL DISTRIBUTION WIDTH 13.1 % (11.0-15.5); WHITE BLOOD COUNT (AUTO) 9.9 K/uL (4.8-10.8)
[2022-09-22 05:16] LABS: ALBUMIN 3.4 g/dL (3.5-5.0); CREATININE 1.6 mg/dL (0.5-1.5); POTASSIUM 4.3 mmol/L (3.5-5.1); TOTAL PROTEIN, SERUM 6.2 g/dL (6.0-8.3)
[2022-09-22] MEDS ORDERED: ALBUTEROL 0.042% 1.25MG/3ML IH ONE ×2 (06:14→09:41)
[2022-09-22] MEDS ORDERED: IPRATROPIUM 0.5 MG/2.5 ML INH IH ONE ×3 (06:25→15:08)
[2022-09-22] MEDS ORDERED: METFORMIN HCL 500 MG TABLET PO SCH (08:00)
[2022-09-22] MEDS: LISINOPRIL 40 MG TABLET PO SCH (09:00)
[2022-09-22] MEDS: SPIRONOLACTONE 25 MG TAB PO SCH (09:11)
[2022-09-22] MEDS: ENOXAPARIN SODIUM 40 MG/0.4 ML SYRINGE SQ SCH (09:11)
[2022-09-22] MEDS: CITALOPRAM 20 MG TABLET PO SCH (09:11)
[2022-09-22] MEDS: FUROSEMIDE 20 MG TABLET PO SCH ×3 (09:12→19:23)
[2022-09-22 10:02] LABS: ABG BASE EXCESS -2.2 mmol/L (-2.0-3.0); ABG OXYGEN SATURATION 91.4 % (95.0-99.0); ABG PCO2 41 mmHg (32-45)
[2022-09-22] MEDS: METOPROLOL SUCCINATE 25 MG TAB.SR.24H PO SCH (11:17)
[2022-09-22 11:30] VITALS: BP 120/63
[2022-09-22] MEDS: INSULIN HUMULIN R 100 UNIT/ML 3ML SQ SCH ×3 (11:36→21:32)
[2022-09-22] MEDS ORDERED: ALBUTEROL 0.083% 2.5 MG/3 ML INH IH ONE ×3 (14:46→22:49)
[2022-09-22 15:30] VITALS: BP 118/68
[2022-09-22] MEDS ORDERED: FUROSEMIDE 20MG VIAL IV SCH (17:00)
[2022-09-22] MEDS: CEFTRIAXONE 1G VIAL IVP SCH (17:38)
[2022-09-22] MEDS: AZITHROMYCIN 500MG+NS 250ML IVPB SCH (17:39)
[2022-09-22 20:00] VITALS: BP 113/72
[2022-09-23] VITALS: BP 116/74
[2022-09-23] MEDS: SOLU-MEDROL 40MG VIAL IVP SCH (01:12)
[2022-09-23] MEDS ORDERED: IPRATROPIUM 0.5 MG/2.5 ML INH IH ONE (03:03)
[2022-09-23] MEDS ORDERED: ALBUTEROL 0.083% 2.5 MG/3 ML INH IH ONE (03:05)
[2022-09-23 04:00] VITALS: BP 108/67
[2022-09-23 05:13] LABS: HEMATOCRIT 51.3 % (36-48); MEAN CORPUSCULAR HEMOGLOBIN 31.7 pg (27.0-33.0); MEAN CORPUSCULAR HGB CONC 33.1 g/dL (32.0-36.0); MEAN CORPUSCULAR VOLUME 95.7 fL (79-99); RED BLOOD CELL COUNT(AUTO) 5.36 MIL/uL (4.00-5.50); RED CELL DISTRIBUTION WIDTH 13.3 % (11.0-15.5); WHITE BLOOD COUNT (AUTO) 16.3 K/uL (4.8-10.8)
[2022-09-23 05:20] LABS: CREATININE 1.3 mg/dL (0.5-1.5); MAGNESIUM 1.5 mg/dL (1.80-2.40); POTASSIUM 4.8 mmol/L (3.5-5.1)
[2022-09-23] MEDS: INSULIN HUMULIN R 100 UNIT/ML 3ML SQ SCH ×2 (06:36→12:12)
[2022-09-23] MEDS ORDERED: HYDROCODONE/ACETAMINOPHEN 5/325 MG TAB PO PRN (07:00)
[2022-09-23] MEDS ORDERED: MAGNESIUM 2GM PREMIX 50ML 50 ML IV PRN (07:00)
[2022-09-23 07:05] VITALS: BP 117/72
[2022-09-23] MEDS ORDERED: FUROSEMIDE 20 MG TABLET PO SCH (09:00)
[2022-09-23] MEDS ORDERED: SOLU-MEDROL 40MG VIAL IVP SCH (09:00)
[2022-09-23] MEDS: SPIRONOLACTONE 25 MG TAB PO SCH (09:35)
[2022-09-23] MEDS: LISINOPRIL 40 MG TABLET PO SCH (09:35)
[2022-09-23] MEDS: CITALOPRAM 20 MG TABLET PO SCH (09:35)
[2022-09-23] MEDS: METOPROLOL SUCCINATE 25 MG TAB.SR.24H PO SCH (09:36)
[2022-09-23] MEDS: ENOXAPARIN SODIUM 40 MG/0.4 ML SYRINGE SQ SCH (09:38)
[2022-09-23 10:45] VITALS: BP 115/69
[2022-09-23 15:00] VITALS: BP 129/80
== END 2022-09-23 16:00 | disposition home or self-care (01) | DRG 189 ==
LOC: EDH 10:21 → EDHIP 11:58 → 4AH 18:00 → UNDODISIN 09-23 16:00
PROVIDERS: ADMIT Internal Medicine; ATTEND Internal Medicine
DX: J96.21 Acute and chronic respiratory failure with hypoxia (principal); I50.43 Acute on chronic combined systolic (congestive) and diastolic (congestive) heart failure; I13.0 Hypertensive heart and chronic kidney disease with heart failure and stage 1 through stage 4 chronic kidney disease, or unspecified chronic kidney disease; J44.1 Chronic obstructive pulmonary disease with (acute) exacerbation; N17.9 Acute kidney failure, unspecified; E11.22 Type 2 diabetes mellitus with diabetic chronic kidney disease; E78.5 Hyperlipidemia, unspecified; E66.01 Morbid (severe) obesity due to excess calories; I25.5 Ischemic cardiomyopathy; M47.9 Spondylosis, unspecified; T38.0X5A Adverse effect of glucocorticoids and synthetic analogues, initial encounter; N18.30 Chronic kidney disease, stage 3 unspecified; Z68.33 Body mass index [BMI] 33.0-33.9, adult; I25.2 Old myocardial infarction; Z87.891 Personal history of nicotine dependence; Z99.81 Dependence on supplemental oxygen
CPT/HCPCS: 36415; 36600; 71045; 71250; 80048; 80053; 82803; 82948; 83735; 83880; 85025; 85027; 87635; 87804; 93005; 93306; 93356; 93970; 94640; 94664; 96374; 96375; C9803; G0378; J0456; J0696; J1650; J1815; J1940; J2920; J2930; J3475

== ENCOUNTER 2022-11-03 13:32 | Emergency (ER) | payer OTHER ==
[~2022-11-03] VITALS: Ht 152.4 cm; Wt 72.6 kg
[~2022-11-03 13:32] MED LIST changes: -CYCL10TA16 PO; -FLUT1BLS3 IH; -NAPR-1180 PO
[2022-11-03 16:32] VITALS: BP 120/72
[2022-11-03] MEDS ORDERED: KETOROLAC 60 MG VIAL (30MG/ML) IM ONE ×2 (17:00→17:07)
[2022-11-03] MEDS ORDERED: IBUP-2070 PO (17:04)
[2022-11-03] MEDS ORDERED: OXYC-38 PO (17:21)
== END 2022-11-03 18:09 | disposition home or self-care (01) ==
LOC: EDH 13:32
DX: S63.392A Traumatic rupture of other ligament of left wrist, initial encounter (principal); S80.212A Abrasion, left knee, initial encounter; E11.9 Type 2 diabetes mellitus without complications; J44.9 Chronic obstructive pulmonary disease, unspecified; Z79.84 Long term (current) use of oral hypoglycemic drugs; Z79.899 Other long term (current) drug therapy; W18.39XA Other fall on same level, initial encounter; Y93.89 Activity, other specified; Y92.89 Other specified places as the place of occurrence of the external cause; Y99.8 Other external cause status
CPT/HCPCS: 99284; 73100; 73562; 29125; 96372; J1885

== ENCOUNTER 2023-01-30 10:33 | Emergency (ER) | payer OTHER ==
[~2023-01-30] VITALS: Ht 152.4 cm; Wt 72.6 kg
[~2023-01-30 10:33] MED LIST changes: +IBUP-2070 PO
[2023-01-30] MEDS ORDERED: IPRATROPIUM 0.5 MG/2.5 ML INH IH ONE (11:00)
[2023-01-30] MEDS ORDERED: ALBUTEROL 0.083% 2.5 MG/3 ML INH IH ONE (11:00)
[2023-01-30] MEDS ORDERED: SOLU-MEDROL 125MG VIAL IVP ONE (11:00)
[2023-01-30] MEDS ORDERED: AUD IH (11:20)
[2023-01-30] MEDS ORDERED: PRED50TA2 PO (11:20)
[2023-01-30] MEDS ORDERED: ALBUHFA IH (11:20)
[2023-01-30 11:27] LABS: BASOPHILS % (AUTO) 0.6 % (0.0-5.0); EOSINOPHILS % (AUTO) 1.6 % (0.0-8.0); HEMATOCRIT 47.6 % (36-48); LYMPHOCYTES % (AUTO) 26.8 % (21.0-51.0); MEAN CORPUSCULAR HEMOGLOBIN 32.3 pg (27.0-33.0); MEAN CORPUSCULAR HGB CONC 33.2 g/dL (32.0-36.0); MEAN CORPUSCULAR VOLUME 97.3 fL (79-99); MONOCYTES % (AUTO) 9.3 % (3.0-13.0); NEUTROPHILS % (AUTO) 60.4 % (40.0-77.0); PLATELET COUNT (AUTO) 272 K/uL (130-400); RED BLOOD CELL COUNT(AUTO) 4.89 MIL/uL (4.00-5.50); RED CELL DISTRIBUTION WIDTH 13.2 % (11.0-15.5); WHITE BLOOD COUNT (AUTO) 8.8 K/uL (4.8-10.8)
[2023-01-30 11:39] LABS: CREATININE 1.1 mg/dL (0.5-1.5); POTASSIUM 4.5 mmol/L (3.5-5.1)
[2023-01-30 11:43] LABS: ALBUMIN 3.4 g/dL (3.5-5.0); TOTAL PROTEIN, SERUM 6.7 g/dL (6.0-8.3)
[2023-01-30 12:10] LABS: B-TYPE NATRIURETIC PEPTIDE 190 pg/mL (0-100)
[2023-01-30 12:48] VITALS: BP 113/64
== END 2023-01-30 13:41 | disposition home or self-care (01) ==
LOC: EDH 10:33
DX: J44.1 Chronic obstructive pulmonary disease with (acute) exacerbation (principal); I11.0 Hypertensive heart disease with heart failure; I50.9 Heart failure, unspecified; E78.00 Pure hypercholesterolemia, unspecified; E11.9 Type 2 diabetes mellitus without complications
CPT/HCPCS: 99285; 96374; 71045; 84484; 80053; 83880; 85025; 36415; 93005; 94640; J2930

== ENCOUNTER 2023-05-13 17:50 | Emergency (ER) | payer OTHER ==
[~2023-05-13] VITALS: Ht 152.4 cm; Wt 73.5 kg
[~2023-05-13 17:50] MED LIST changes: +ALBUHFA IH; +AUD IH; +PRED50TA2 PO
[2023-05-13 18:23] LABS: SARS-CoV-2, RNA, NAAT NEGATIVE SARS CoV-2 (NEGATIVE)
[2023-05-13 18:27] LABS: INFLUENZA TYPE A Negative For Type A (NEGATIVE); INFLUENZA TYPE B Negative For Type B (NEGATIVE)
[2023-05-13 19:12] LABS: BASOPHILS # (AUTO) 0.04 K/uL (0.00-0.20); BASOPHILS % (AUTO) 0.4 % (0.0-5.0); EOSINOPHILS # (AUTO) 0.37 K/uL (0.00-0.70); EOSINOPHILS % (AUTO) 3.6 % (0.0-8.0); IMMATURE GRANULOCYTE ABSOLUTE 0.04 K/uL (0-1); LYMPHOCYTES # (AUTO) 2.1 K/uL (1.0-4.8); MEAN CORPUSCULAR HEMOGLOBIN 32.1 pg (27.0-33.0); MEAN CORPUSCULAR HGB CONC 33.8 g/dL (32.0-36.0); MEAN CORPUSCULAR VOLUME 95.2 fL (79-99); MONOCYTES % (AUTO) 10.1 % (3.0-13.0); NEUTROPHILS # (AUTO) 6.7 K/uL (1.8-7.7); NEUTROPHILS % (AUTO) 65.5 % (40.0-77.0); PLATELET COUNT (AUTO) 192 K/uL (130-400); RED BLOOD CELL COUNT(AUTO) 5.04 MIL/uL (4.00-5.50); RED CELL DISTRIBUTION WIDTH 12.6 % (11.0-15.5); WHITE BLOOD COUNT (AUTO) 10.3 K/uL (4.8-10.8)
[2023-05-13 19:26] LABS: CREATININE 1.1 mg/dL (0.5-1.5); POTASSIUM 4.2 mmol/L (3.5-5.1)
[2023-05-13 19:28] LABS: ALBUMIN 3.4 g/dL (3.5-5.0); BILIRUBIN,TOTAL 0.8 mg/dL (0.2-1.0); TOTAL PROTEIN, SERUM 6.6 g/dL (6.0-8.3)
[2023-05-13] MEDS ORDERED: IPRATROPIUM/ALBUTEROL SULFATE 3 ML SOLUTION IH ONE ×4 (19:30→20:00)
[2023-05-13 19:36] VITALS: PULSE 84; RESP 19
[2023-05-13 19:43] VITALS: PULSE 82; RESP 20
[2023-05-13 19:50] VITALS: PULSE 86; RESP 22
[2023-05-13 19:52] VITALS: BP 106/62; PULSE 88; RESP 18; O2SAT 98
[2023-05-13] MEDS ORDERED: SOLU-MEDROL 125MG VIAL IVP ONE ×2 (20:00)
[2023-05-13] MEDS ORDERED: CEFTRIAXONE 1G VIAL IVPB ONE (20:00)
[2023-05-13] MEDS ORDERED: AZITHROMYCIN 250 MG TABLET PO ONE (20:00)
[2023-05-13] MEDS ORDERED: AZIT500T PO (20:16)
== END 2023-05-13 20:53 | disposition home or self-care (01) ==
LOC: EDH 17:50
DX: J40 Bronchitis, not specified as acute or chronic (principal); E11.9 Type 2 diabetes mellitus without complications; E78.00 Pure hypercholesterolemia, unspecified; I11.0 Hypertensive heart disease with heart failure; I50.9 Heart failure, unspecified; J44.9 Chronic obstructive pulmonary disease, unspecified; F17.210 Nicotine dependence, cigarettes, uncomplicated; Z79.52 Long term (current) use of systemic steroids; Z79.84 Long term (current) use of oral hypoglycemic drugs; Z79.899 Other long term (current) drug therapy; Z95.810 Presence of automatic (implantable) cardiac defibrillator; Z99.81 Dependence on supplemental oxygen; Z20.822 Contact with and (suspected) exposure to COVID-19
CPT/HCPCS: 99285; 96374; 71045; 87635; 96375; 84484; 80053; 85025; 87040 ×2; 87804 ×2; 83605; 36415; 93005; 94640 ×3; C9803; J2930; J0696

== ENCOUNTER 2023-06-20 13:34 | Emergency (ER) | payer OTHER ==
[~2023-06-20] VITALS: Ht 152.4 cm; Wt 72.6 kg
[~2023-06-20 13:34] MED LIST changes: +AZIT500T PO
[2023-06-20 13:44] VITALS: BP 136/77; PULSE 69; RESP 22
[2023-06-20] MEDS ORDERED: IBUP-2070 PO (16:17)
[2023-06-20] MEDS ORDERED: CYCL5TAB PO (16:17)
[2023-06-20] MEDS ORDERED: KETOROLAC 30MG VIAL (30MG/ML) IM ONE (16:30)
== END 2023-06-20 17:29 | disposition home or self-care (01) ==
LOC: EDH 13:34
DX: M54.2 Cervicalgia (principal); M47.812 Spondylosis without myelopathy or radiculopathy, cervical region; M19.91 Primary osteoarthritis, unspecified site; J44.9 Chronic obstructive pulmonary disease, unspecified; E11.9 Type 2 diabetes mellitus without complications; E78.00 Pure hypercholesterolemia, unspecified; I11.0 Hypertensive heart disease with heart failure; I50.9 Heart failure, unspecified; F17.200 Nicotine dependence, unspecified, uncomplicated; Z79.52 Long term (current) use of systemic steroids; Z79.84 Long term (current) use of oral hypoglycemic drugs; Z79.899 Other long term (current) drug therapy; Z95.810 Presence of automatic (implantable) cardiac defibrillator
CPT/HCPCS: 99285; 72125; 96372; J1885